=== PATIENT | male | born 1975 | race Caucasian/White ===

== ENCOUNTER 2022-05-28 08:36 | Emergency (ER) | payer OTHER ==
[2022-05-28 09:18] LABS: HEMOGLOBIN 14.5 gm/dl (14.0-17.5); RED BLOOD COUNT 4.97 M/UL (4.20-5.50); WHITE BLOOD COUNT 4.6 K/UL (4.5-11.0)
[2022-05-28 09:42] LABS: BUN/CREATININE RATIO 17 (0-10)
[2022-05-28 09:52] LABS: ADENOVIRUS F 40/41 Not Detected (Negative); ASTROVIRUS Not Detected (Negative); CAMPYLOBACTER Not Detected (Negative); CRYPTOSPORIDIUM Not Detected (Negative); E.COLI 0157 Not Detected (Negative); ENTAMOEBA HISTOLYTICA Not Detected (Negative); ENTEROAGGREGATIVE E.COLI (EAEC Not Detected (Negative); ENTEROPATHOGENIC E.COLI (EPEC) Not Detected (Negative); ENTEROTOXIGENIC E.COLI (ETEC) Not Detected (Negative); GIARDIA LAMBLIA Not Detected (Negative); NOROVIRUS GI/GII Not Detected (Negative); PLESIOMONAS SHIGELLOIDES Not Detected (Negative); ROTOVIRUS A Not Detected (Negative); SALMONELLA Not Detected (Negative); SAPOVIRUS Not Detected (Negative); SHIG/ENTEROINVAS.ECOLI (EIEC) Not Detected (Negative); SHIGA-LIK TOX.PRO.E.COLI (STEC Not Detected (Negative); VIBRIO Not Detected (Negative); VIBRIO CHOLERAE Not Detected (Negative); YERSINIA ENTEROCOLITICA Not Detected (Negative)
[2022-05-28 11:38] LABS: CLOSTRIDIUM DIFFICILE TOX A/B Not Detected (Negative)
[2022-05-28] MEDS ORDERED: BENTYL 20MG TAB20 MG PO (11:49)
[2022-05-28] MEDS ORDERED: ZOFRAN 4 MG TAB4 MG PO (11:49)
== END 2022-05-28 12:25 | disposition home or self-care (01) ==
LOC: ER1 08:36
PROVIDERS: Physician Assistant
DX: K74.60 Unspecified cirrhosis of liver (principal); R16.1 Splenomegaly, not elsewhere classified; F17.290 Nicotine dependence, other tobacco product, uncomplicated
CPT/HCPCS: 80053; 81001; 83690; 85025; 87507; 96374; 96375; 99284; C9113; J2405; Q9967

== ENCOUNTER 2022-07-26 09:57 | Emergency (ER) | payer OTHER ==
[~2022-07-26 09:57] MED LIST: BENTYL 20MG TAB20 MG PO; ZOFRAN 4 MG TAB4 MG PO
[2022-07-26] MEDS ORDERED: IMODIUM CAP 2 MG2 MG PO (10:53)
[2022-07-26 11:31] LABS: ADENOVIRUS F 40/41 Not Detected (Negative); ASTROVIRUS Not Detected (Negative); CAMPYLOBACTER Not Detected (Negative); CRYPTOSPORIDIUM Not Detected (Negative); E.COLI 0157 Not Detected (Negative); ENTAMOEBA HISTOLYTICA Not Detected (Negative); ENTEROAGGREGATIVE E.COLI (EAEC Not Detected (Negative); ENTEROPATHOGENIC E.COLI (EPEC) Not Detected (Negative); ENTEROTOXIGENIC E.COLI (ETEC) Not Detected (Negative); GIARDIA LAMBLIA Not Detected (Negative); NOROVIRUS GI/GII Not Detected (Negative); PLESIOMONAS SHIGELLOIDES Not Detected (Negative); ROTOVIRUS A Not Detected (Negative); SALMONELLA Not Detected (Negative); SAPOVIRUS Not Detected (Negative); SHIG/ENTEROINVAS.ECOLI (EIEC) Not Detected (Negative); SHIGA-LIK TOX.PRO.E.COLI (STEC Not Detected (Negative); VIBRIO Not Detected (Negative); VIBRIO CHOLERAE Not Detected (Negative); YERSINIA ENTEROCOLITICA Not Detected (Negative)
[2022-07-26 14:25] LABS: CLOSTRIDIUM DIFFICILE TOX A/B Not Detected (Negative)
== END 2022-07-26 11:49 | disposition home or self-care (01) ==
LOC: ER1 09:57
PROVIDERS: Family Medicine
DX: R19.7 Diarrhea, unspecified (principal); I10 Essential (primary) hypertension; F17.200 Nicotine dependence, unspecified, uncomplicated
CPT/HCPCS: 87507; 99283

== ENCOUNTER → 2022-07-28 | Outpatient (CLI) | payer OTHER ==
[~2022-07-28] MED LIST changes: +IMODIUM CAP 2 MG2 MG PO
[2022-07-28 17:13] LABS: HEMOGLOBIN 14.2 gm/dl (14.0-17.5); RED BLOOD COUNT 4.72 M/UL (4.20-5.50); WHITE BLOOD COUNT 4.5 K/UL (4.5-11.0)
[2022-07-28 17:36] LABS: BUN/CREATININE RATIO 12 (0-10)
[2022-07-30 08:14] LABS: RPR Non Reactive (Non Reactive); THYROXINE (T4) 12.1 ug/dL (4.5-12.0); VITAMIN D, 25-HYDROXY 30.8 ng/mL (30.0-100.0)
[2022-07-30 11:14] LABS: HIV AB/P24 AG SCREEN Non Reactive (Non Reactive)
== END ==
LOC: LAB 14:47
PROVIDERS: Nurse Practitioner
DX: Z11.3 Encounter for screening for infections with a predominantly sexual mode of transmission (principal); Z11.1 Encounter for screening for respiratory tuberculosis; Z79.899 Other long term (current) drug therapy
CPT/HCPCS: 36415; 80053; 80061; 80074; 82248; 82607; 82728; 83036; 83540; 83735; 84436; 84443; 84481; 85025; 86317; 86592; 86704; 87389